=== PATIENT | female | born 1965 | race Caucasian/White ===

== ENCOUNTER 2022-07-23 07:33 | Outpatient (CLI) | payer BC ==
--- NOTE | 2022-07-23 10:12 | Ultrasound Report ---
PROCEDURE: Pelvic w/Transvaginal INDICATIONS: RLQ PAIN TECHNIQUE: Real-time scanning was performed of the pelvic organs, with image documentation. Additional endovagi nal scanning was necessary due to incomplete visualization of the adnexal and endometrial structures by transabdominal scanning. COMPARISON: None. FINDINGS: Uterus: Uterus is anteverted and mildly increased in size at 8.1 x 3.9 x 4.8 cm. The myometrium is heterogeneous. The endometrium measures 2.4 mm in combined thickness. There is a prominent right an terior fibroid measuring 4.0 x 3.1 x 4.4 cm. It is subserosal. Ovaries: The right ovary measures 1.8 x 1.1 x 1.2 cm, with a calculated ovarian volume of 1.2 cc. T he left ovary is not visualized, possibly secondary to involutional change. No adnexal masses are see n. Other: No pathologic free abdominal or pelvic fluid. IMPRESSION: 1. Uterine fibroid. 2. No adnexal mass. Reviewed by: Ashvin Hays MD on 07/23/2022 10:11 AM PST Approved by: Ashvin Hays MD on 07/23/2022 10:11 AM PST Station ID: [id number]
== END 2022-07-23 07:34 | disposition home or self-care (01) ==
LOC: DI 07:33
PROVIDERS: ATTEND Nurse Practitioner Family
DX: R10.31 Right lower quadrant pain (principal); D25.2 Subserosal leiomyoma of uterus

== ENCOUNTER 2022-07-23 07:41 | Outpatient (CLI) | payer BC ==
--- NOTE | 2022-07-24 10:01 | Mammography Report ---
BILATERAL DIGITAL SCREENING MAMMOGRAM 3D/2D: 07/23/2022 CLINICAL: Routine screening. Family history of breast cancer. Comparison is made to exams dated: 05/16/2020 mammogram, 02/10/2019 mammogram, 05/09/2018 mammogram, and 05/09/2018 mammogram - [facility]. There are scattered areas of fibroglandular density in both breasts (category b / 25%-50% glandular t issue). No significant masses, calcifications, or other findings are seen in either breast. There has been no significant interval change. IMPRESSION: NEGATIVE There is no mammographic evidence of malignancy. A 1 year screening mammogram is recommended. This exam was interpreted at Station ID: [id number]. NOTE: For mammograms, a report in lay terms will be sent to the patient. Approximately 15% of breast malignancies will not be visualized mammographically. In the management of a palpable breast mass, a negative mammogram must not discourage biopsy of a clinically suspicious lesion. Electronically Signed By: Jose madera/denzel:07/23/2022 17:32:50 letter sent: No_Letter ACR BI-RADS Category 1: Negative 3341F PARENCHYMAL PATTERN: (A) - The breast(s) demonstrate(s) scattered fibroglandular densities. BI-RADS CATEGORY: (1) - 1 Mammogram [id number] 1 year screening LATERALITY: (B)
== END 2022-07-23 07:42 | disposition home or self-care (01) ==
LOC: DI 07:41
PROVIDERS: ATTEND Nurse Practitioner Family
DX: Z12.31 Encounter for screening mammogram for malignant neoplasm of breast (principal); Z80.3 Family history of malignant neoplasm of breast

== ENCOUNTER 2023-09-13 12:22 | Outpatient (CLI) | payer BC, OTHER ==
--- NOTE | 2023-09-13 15:03 | Ultrasound Report ---
PROCEDURE: Extremity Soft Tissue Limited INDICATIONS: SUPERFICIAL MASS TECHNIQUE: Real-time scanning was performed of the left upper arm, with image documentation. COMPARISON: None. FINDINGS: Focused ultrasound examination of posterior left upper arm at patient's reported area of p alpable lump shows slightly hyperechoic nodule in subcutaneous soft tissue measures 5 x 4 x 5 mm in s ize and show no internal vascularity. IMPRESSION: 5 mm hypoechoic and solid appearing nodule in posterior left upper arm subcutaneous soft tissue. No internal vascularity is seen. This is of indeterminant etiology, clinical correlation and follow-up is recommended. Reviewed by: Rafal Romo MD on 09/13/2023 3:02 PM PDT Approved by: Rafal Romo MD on 09/13/2023 3:02 PM PDT Station ID: [id number]
== END 2023-09-13 12:23 | disposition home or self-care (01) ==
LOC: DI 12:22
PROVIDERS: ATTEND Physician Assistant Medical
DX: R22.32 Localized swelling, mass and lump, left upper limb (principal)

== ENCOUNTER 2024-01-15 22:40 | Emergency (ER) | payer OTHER ==
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
[2024-01-15] MEDS: TETANUS/DIPHTHERIA/PERTUSSIS 0.5 ML SYRINGE IM ONE (23:22)
--- NOTE | 2024-01-15 23:26 | CT Report ---
PROCEDURE: Cervical Spine WO INDICATIONS: trauma TECHNIQUE: Noncontrast 3 mm thick sections acquired from the skull base to the T4 level. Sagittal and coronal r eformats were then constructed. For radiation dose reduction, the following was used: automated exp osure control, adjustment of mA and/or kV according to patient size. COMPARISON: None. FINDINGS: Image quality: Excellent. Bones: No fractures or dislocations. Visualized superior ribs are intact. Soft tissues: Prevertebral soft tissues are normal in thickness. No paravertebral hematomas. No ap ical pneumothoraces. IMPRESSION: No acute trauma found. Note is made of C4-5 and especially C5-C6 degenerative disc disease with poste rior projecting osteophytes to the degree that significant spinal and foraminal stenosis would be exp ected in those areas. Reviewed by: Charlie Gustafson MD on 01/15/2024 11:24 PM PDT Approved by: Charlie Gustafson MD on 01/15/2024 11:24 PM PDT Station ID: [id number]
--- NOTE | 2024-01-15 23:27 | CT Report ---
PROCEDURE: Head WO INDICATIONS: trauma TECHNIQUE: Noncontrast 4.5 mm thick angled axial sections acquired from the foramen magnum to the vertex. For r adiation dose reduction, the following was used: automated exposure control, adjustment of mA and/or kV according to patient size. COMPARISON: None. FINDINGS: Image quality: Excellent. CSF spaces: Basal cisterns are patent. No extra-axial fluid collections. Ventricles are normal in size and shape. Brain: No midline shift. No intracranial masses or hemorrhage. Bull-white matter interface is norm al. Skull and face: Calvarium and visualized facial bones are intact, without suspicious lesions. Sinuses: Visualized sinuses and mastoids are clear. IMPRESSION: No acute intracranial pathology. No trauma found. Reviewed by: Charlie Gustafson MD on 01/15/2024 11:25 PM PDT Approved by: Charlie Gustafson MD on 01/15/2024 11:25 PM PDT Station ID: [id number]
--- NOTE | 2024-01-15 23:29 | CT Report ---
PROCEDURE: Maxillofacial WO INDICATIONS: trauma TECHNIQUE: Noncontrast 1.5 mm thick axial images acquired from the mandible through the frontal sinuses, with co jono and sagittal reformatting. For radiation dose reduction, the following was used: automated ex posure control, adjustment of mA and/or kV according to patient size. COMPARISON: None. FINDINGS: Image quality: Excellent. Bones and teeth: Orbital rivas are intact. Sinus rivas show no fracture or deformity. Nasal bones and septum are intact. Visualized portions of the mandible demonstrate no fractures or subluxation. Zygomatic arches are intact. Pterygoid plates are intact. Visualized portions of the skull base an d auditory canals are intact. Sinuses: Paranasal sinuses are aerated, without fluid levels, mucosal thickening, or mucoceles. Mas toid air cells are aerated. Soft tissues: No edema, masses, or fluid collections. No enlarged lymph nodes. No soft tissue lace rations or debris. Vascular: Visualized vascular structures appear normal in the absence of contrast. Bony vascular fo ramina and canals are intact. IMPRESSION: No trauma found. Reviewed by: Charlie Gustafson MD on 01/15/2024 11:27 PM PDT Approved by: Charlie Gustafson MD on 01/15/2024 11:27 PM PDT Station ID: [id number]
[2024-01-16 00:09] VITALS: BP 130/94; O2SAT 99
== END 2024-01-16 00:08 | disposition home or self-care (01) ==
LOC: ED 22:40
DX: S00.83XA Contusion of other part of head, initial encounter (principal); Y04.2XXA Assault by strike against or bumped into by another person, initial encounter; M54.2 Cervicalgia; Z23 Encounter for immunization
CPT/HCPCS: 99284